=== PATIENT | female | born 1985 | race Caucasian/White ===

== ENCOUNTER 2023-03-05 08:17 | Outpatient (CLI) | payer BC ==
[2023-03-05] MEDS ORDERED: Magnevist 469MG/ML 20 ML VIAL ONE (17:27)
== END 2023-03-05 08:18 | disposition home or self-care (01) ==
LOC: BICMRI 08:17
PROVIDERS: ATTEND Orthopaedic Surgery
DX: M23.91 Unspecified internal derangement of right knee (principal)
CPT/HCPCS: A9579